=== PATIENT | male | born 1990 | race African-American/Black ===

== ENCOUNTER 2021-08-02 23:35 | Inpatient (IN) | payer MEDICAID, OTHER ==
[~2021-08-02] VITALS: Ht 175.3 cm; Wt 75.7 kg
[2021-08-03] MEDS ORDERED: BUSPIRONE HCL 10MG TABLET PO ONE (01:15)
[2021-08-03] MEDS ORDERED: PIPERACILLIN/TAZ 3.375G PREMIX 50 ML IV ONE (03:15)
[2021-08-03] MEDS: VANCOMYCIN 1 G PREMIX 200 ML IV SCH (04:20)
[2021-08-03 04:37] LABS: BASOPHILS % 0.9 % (0.0-2.0); EOSINOPHILS % 1.5 % (0.0-5.0); HEMATOCRIT. 40.9 % (42.0-52.0); HEMOGLOBIN. 13.8 g/dL (14.0-18.0); LYMPHOCYTES % 17.3 % (20.0-50.0); MEAN CORPUSCULAR HEMOGLOBIN 31.3 pg (28.0-32.0); MEAN CORPUSCULAR VOLUME 92.9 fL (80.0-94.0); MEAN PLATELET VOLUME 6.9 fl (7.4-10.4); MONOCYTES % 6.6 % (2.0-8.0); NEUTROPHILS % 73.7 % (40.0-76.0); PLATELET 488 x1000/uL (130-400); RED CELL DISTRIBUTION WIDTH 13.1 % (11.6-14.6)
[2021-08-03 04:46] LABS: CHLORIDE 104 mEq/L (98-107)
[2021-08-03] MEDS ORDERED: ONDANSETRON HCL 4MG/2ML INJ IV PRN (11:15)
[2021-08-03] MEDS ORDERED: ACETAMINOPHEN 325MG TABLET PO PRN (11:15)
[2021-08-03] MEDS ORDERED: DOCUSATE SODIUM 100MG CAPSULE PO PRN (11:15)
[2021-08-03] MEDS ORDERED: IPRATROPIUM/ALBUTEROL 0.5-3(2.5)MG/3ML NEB HHN PRN (11:15)
[2021-08-03] MEDS ORDERED: HYDROCODONE/ACETAMINOPHEN 5/325MG TABLET PO PRN (11:15)
[2021-08-03] MEDS ORDERED: CLONIDINE 0.1MG TABLET PO PRN (11:15)
[2021-08-03] MEDS: BUSPIRONE HCL 10MG TABLET PO SCH ×2 (12:48→21:00)
[2021-08-03] MEDS: ACETAMINOPHEN 325MG TABLET PO PRN (19:37)
[2021-08-03] MEDS: LORAZEPAM 0.5MG TABLET PO PRN (19:37)
[2021-08-04] MEDS: VANCOMYCIN 1 G PREMIX 200 ML IV SCH (03:15)
[2021-08-04] MEDS: ACETAMINOPHEN 325MG TABLET PO PRN ×3 (04:46→22:12)
[2021-08-04 06:37] LABS: *AMPHETAMINES SCREEN URINE NEGATIVE (NEGATIVE); *BARBITURATES SCREEN URINE NEGATIVE (NEGATIVE); *BENZODIAZEPINES SCREEN URINE NEGATIVE (NEGATIVE); *COCAINE SCREEN URINE NEGATIVE (NEGATIVE); METHADONE URINE SCREEN NEGATIVE (NEGATIVE); OPIATES URINE SCREEN PRESUMTIVE POSITIVE (NEGATIVE)
[2021-08-04 06:39] LABS: CANNABINOID URINE SCREEN PRESUMTIVE POSITIVE (NEGATIVE); PHENCYCLIDINE URINE SCREEN NEGATIVE (NEGATIVE)
[2021-08-04] MEDS: LORAZEPAM 0.5MG TABLET PO PRN ×2 (09:20→22:13)
[2021-08-04] MEDS: BUSPIRONE HCL 10MG TABLET PO SCH ×2 (09:20→21:13)
[2021-08-04] MEDS: BUPROPION HCL 150MG TABLET XL 24HR PO SCH (11:55)
[2021-08-04 11:58] VITALS: BP 115/76
[2021-08-04 12:09] VITALS: BP 115/70
[2021-08-04] MEDS ORDERED: CYAN50009 MT (14:09)
[2021-08-04] MEDS ORDERED: BUSP10TA4 MT (14:09)
[2021-08-04] MEDS ORDERED: LURA20TA MT (14:09)
[2021-08-04] MEDS ORDERED: BUPR75TA8 MT (14:09)
[2021-08-04] MEDS ORDERED: DIPH25CA83 MT (14:09)
[2021-08-04] MEDS: VANCOMYCIN 1,250 MG in DEXT 5% WATER 250 ML IV SCH ×2 (16:19→21:13)
[2021-08-04 16:22] LABS: BASOPHILS % 1.1 % (0.0-2.0); EOSINOPHILS % 1.8 % (0.0-5.0); HEMATOCRIT. 39.7 % (42.0-52.0); HEMOGLOBIN. 13.6 g/dL (14.0-18.0); LYMPHOCYTES % 28.3 % (20.0-50.0); MEAN CORPUSCULAR HEMOGLOBIN 31.5 pg (28.0-32.0); MEAN CORPUSCULAR VOLUME 91.9 fL (80.0-94.0); MONOCYTES % 7.3 % (2.0-8.0); NEUTROPHILS % 61.5 % (40.0-76.0); PLATELET 491 x1000/uL (130-400); RED BLOOD CELL COUNT 4.33 mill/uL (4.7-6.1)
[2021-08-04 16:38] VITALS: BP 96/71
[2021-08-04 17:03] LABS: CHLORIDE 105 mEq/L (98-107)
[2021-08-04 20:00] VITALS: BP 116/76
[2021-08-05 04:00] VITALS: BP 115/73
[2021-08-05] MEDS: VANCOMYCIN 1,250 MG in DEXT 5% WATER 250 ML IV SCH ×3 (05:25→21:10)
[2021-08-05] MEDS: BUSPIRONE HCL 10MG TABLET PO SCH (10:22)
[2021-08-05] MEDS: BUPROPION HCL 150MG TABLET XL 24HR PO SCH (10:22)
[2021-08-05] MEDS: LORAZEPAM 0.5MG TABLET PO PRN (10:22)
[2021-08-05] MEDS: ACETAMINOPHEN 325MG TABLET PO PRN ×2 (10:27→18:57)
[2021-08-05 12:00] VITALS: BP 110/65
[2021-08-05] MEDS ORDERED: NALOXONE HCL 0.4MG/ML VIAL IV PRN (15:00)
[2021-08-05 16:00] VITALS: BP 110/65
[2021-08-05 20:00] VITALS: BP 124/76
[2021-08-05] MEDS: DIPHENHYDRAMINE 50MG CAPSULE PO SCH (21:10)
[2021-08-05] MEDS: BUSPIRONE HCL 10MG TABLET PO PRN (21:17)
[2021-08-06] VITALS: BP 122/68
[2021-08-06] MEDS: VANCOMYCIN 1,250 MG in DEXT 5% WATER 250 ML IV SCH ×2 (05:23→14:04)
[2021-08-06 08:00] VITALS: BP 122/74
[2021-08-06] MEDS: BUPROPION HCL 150MG TABLET XL 24HR PO SCH (08:58)
[2021-08-06] MEDS: ACETAMINOPHEN 325MG TABLET PO PRN ×2 (09:05→21:25)
[2021-08-06] MEDS: BUSPIRONE HCL 10MG TABLET PO PRN ×2 (09:05→21:25)
[2021-08-06 12:00] VITALS: BP 115/67
[2021-08-06] MEDS: CYANOCOBALAMIN 100MCG TABLET PO SCH (14:04)
[2021-08-06 16:00] VITALS: BP 117/69
[2021-08-06 19:24] LABS: CHLORIDE 101 mEq/L (98-107)
[2021-08-06 20:00] VITALS: BP 121/72
[2021-08-06 20:05] LABS: VANCOMYCIN TROUGH 58.6 ug/mL (5.0-10.0)
[2021-08-06 20:17] LABS: BASOPHILS % 1.1 % (0.0-2.0); EOSINOPHILS % 1.5 % (0.0-5.0); HEMATOCRIT. 38.2 % (42.0-52.0); LYMPHOCYTES % 24.7 % (20.0-50.0); MEAN CORPUSCULAR HEMOGLOBIN 30.9 pg (28.0-32.0); MEAN CORPUSCULAR VOLUME 90.5 fL (80.0-94.0); MEAN PLATELET VOLUME 7.1 fl (7.4-10.4); MONOCYTES % 6.3 % (2.0-8.0); NEUTROPHILS % 66.4 % (40.0-76.0); PLATELET 399 x1000/uL (130-400); RED BLOOD CELL COUNT 4.22 mill/uL (4.7-6.1); RED CELL DISTRIBUTION WIDTH 12.9 % (11.6-14.6)
[2021-08-06] MEDS: DIPHENHYDRAMINE 50MG CAPSULE PO SCH (21:26)
[2021-08-07 08:00] VITALS: BP 112/75
[2021-08-07] MEDS: ACETAMINOPHEN 325MG TABLET PO PRN ×2 (09:51→20:32)
[2021-08-07] MEDS: BUSPIRONE HCL 10MG TABLET PO PRN ×2 (09:51→20:31)
[2021-08-07] MEDS: BUPROPION HCL 150MG TABLET XL 24HR PO SCH (09:52)
[2021-08-07] MEDS: CYANOCOBALAMIN 100MCG TABLET PO SCH (09:55)
[2021-08-07] MEDS ORDERED: AMOX-424 MT (11:36)
[2021-08-07] MEDS ORDERED: SULF1TAB48 MT (11:36)
[2021-08-07 12:00] VITALS: BP 115/76
[2021-08-07 16:00] VITALS: BP 119/79
[2021-08-07 19:51] LABS: CHLORIDE 103 mEq/L (98-107)
[2021-08-07 20:00] VITALS: BP 119/71
[2021-08-07] MEDS: DIPHENHYDRAMINE 50MG CAPSULE PO SCH (20:32)
[2021-08-07] MEDS: VANCOMYCIN 750 MG PREMIX 150 ML IV SCH (21:50)
[2021-08-08] VITALS: BP 107/73
[2021-08-08 08:00] VITALS: BP 114/68
[2021-08-08] MEDS: CYANOCOBALAMIN 100MCG TABLET PO SCH (09:20)
[2021-08-08] MEDS: BUPROPION HCL 150MG TABLET XL 24HR PO SCH (09:20)
[2021-08-08] MEDS: BUSPIRONE HCL 10MG TABLET PO PRN (09:20)
[2021-08-08] MEDS: VANCOMYCIN 750 MG PREMIX 150 ML IV SCH ×2 (09:20→20:30)
[2021-08-08] MEDS: ACETAMINOPHEN 325MG TABLET PO PRN ×2 (09:21→20:30)
[2021-08-08 12:00] VITALS: BP 105/68
[2021-08-08 16:00] VITALS: BP 120/73
[2021-08-08 20:00] VITALS: BP 112/77
[2021-08-08] MEDS: DIPHENHYDRAMINE 50MG CAPSULE PO SCH (20:30)
[2021-08-09] VITALS: BP 107/64
[2021-08-09] MEDS ORDERED: BUSPIRONE HCL 10MG TABLET PO PRN (05:15)
[2021-08-09 08:00] VITALS: BP 117/71
[2021-08-09] MEDS: BUPROPION HCL 150MG TABLET XL 24HR PO SCH (10:46)
[2021-08-09] MEDS: CYANOCOBALAMIN 100MCG TABLET PO SCH (10:46)
[2021-08-09] MEDS: BUSPIRONE HCL 10MG TABLET PO PRN ×2 (10:47→21:47)
[2021-08-09] MEDS: ACETAMINOPHEN 325MG TABLET PO PRN ×2 (10:47→21:42)
[2021-08-09 12:00] VITALS: BP 110/69
[2021-08-09] MEDS: VANCOMYCIN 750 MG PREMIX 150 ML IV SCH ×2 (12:16→21:47)
[2021-08-09 13:45] LABS: CHLORIDE 105 mEq/L (98-107)
[2021-08-09 16:50] VITALS: BP 118/79
[2021-08-09 20:00] VITALS: BP 126/78
[2021-08-09] MEDS: QUETIAPINE FUMARATE 50MG TABLET PO SCH ×2 (21:47→21:50)
[2021-08-09] MEDS: DIPHENHYDRAMINE 50MG CAPSULE PO SCH (21:47)
[2021-08-10 08:00] VITALS: BP 124/78
[2021-08-10] MEDS: CYANOCOBALAMIN 100MCG TABLET PO SCH (09:55)
[2021-08-10] MEDS: BUPROPION HCL 150MG TABLET XL 24HR PO SCH (09:55)
[2021-08-10] MEDS: VANCOMYCIN 750 MG PREMIX 150 ML IV SCH (09:55)
[2021-08-10] MEDS: ACETAMINOPHEN 325MG TABLET PO PRN ×2 (09:56→12:56)
[2021-08-10] MEDS: BUSPIRONE HCL 10MG TABLET PO PRN (09:56)
[2021-08-10 12:00] VITALS: BP 99/59
[2021-08-10] MEDS ORDERED: AMOX-424 MT (14:00)
[2021-08-10] MEDS ORDERED: SULF1TAB48 MT (14:00)
== END 2021-08-10 16:00 | disposition home health service (06) | DRG 813 ==
LOC: ER 23:35 → MICUSO 08-03 03:07 → 8WST 08-04 11:32
PROVIDERS: ADMIT Internal Medicine; ATTEND Internal Medicine
DX: T81.31XA Disruption of external operation (surgical) wound, not elsewhere classified, initial encounter (principal); M86.8X7 Other osteomyelitis, ankle and foot; L08.9 Local infection of the skin and subcutaneous tissue, unspecified; D64.9 Anemia, unspecified; D72.829 Elevated white blood cell count, unspecified; F41.1 Generalized anxiety disorder; F17.200 Nicotine dependence, unspecified, uncomplicated; F43.10 Post-traumatic stress disorder, unspecified; F90.9 Attention-deficit hyperactivity disorder, unspecified type; F32.9 Major depressive disorder, single episode, unspecified; F32.A Depression, unspecified; R26.89 Other abnormalities of gait and mobility; F15.10 Other stimulant abuse, uncomplicated; Y83.8 Other surgical procedures as the cause of abnormal reaction of the patient, or of later complication, without mention of misadventure at the time of the procedure; Y92.89 Other specified places as the place of occurrence of the external cause; Z72.89 Other problems related to lifestyle; Z71.41 Alcohol abuse counseling and surveillance of alcoholic; Z71.6 Tobacco abuse counseling; F19.11 Other psychoactive substance abuse, in remission
CPT/HCPCS: 36415; 73630; 80048; 80053; 80202; 80305; 82962; 85025; 97162; 99285; J2543; J3370; J7040; J7060; Q0163